=== PATIENT | female | born 1980 | race Caucasian/White ===

== ENCOUNTER → 2017-10-03 14:17 | Outpatient (CLI) | payer BC, SELFPAY ==
[2017-10-03 17:35] LABS: Glucose Challenge Gest 1H 50g 108 mg/dL (70-140)
[2017-10-03 17:54] LABS: Hematocrit 36.8 % (37-47); Hemoglobin 12.6 g/dl (12.0-15.0); Mean Corpuscular Hgb 30.1 pg (27.0-32.0); Mean Corpuscular Volume 87.8 fL (81-99); Red Blood Count 4.19 M/mm3 (4.2-5.4); White Blood Count 10.9 K/mm3 (4.4-11.0)
[2017-10-03 17:55] LABS: Mean Corp Hgb Conc 34.2 g/gl (32-36); Mean Platelet Vol. 9.4 fl (6.2-12.0); Platelet Count 239 K/mm3 (150-450); RBC Distribution Width CV 12.8 % (11.6-14.6); RBC Distribution Width SD 40.8 fl (35.1-43.9); Scan Indicated on CBC? Y/N NO
== END ==
DX: O09.893 Supervision of other high risk pregnancies, third trimester (principal); Z3A.00 Weeks of gestation of pregnancy not specified
CPT/HCPCS: 36415; 82950; 85027